=== PATIENT | female | born 1935 | race Caucasian/White ===

== ENCOUNTER 2017-05-20 22:29 | Observation (INO) | payer MEDICARE, OTHER ==
[~2017-05-20] VITALS: Ht 170.2 cm; Wt 49.9 kg
[~2017-05-20 22:29] MED LIST: ADVAIR 250-501 EACH INH; AMLODIPINE BESYL5 MG PO; ASPIRIN EC325 MG PO; BYSTOLIC10 MG PO; DOXAZOSIN MESYLA1 MG PO; HYDROCODON-ACE1 EA13 PO; LISINOPRIL40 MG PO; MULTI-DAY VITA1 EACH PO; NITROSTAT0.4 MG SL; PRAVACHOL80 MG PO; SPIRIVA18 MCG INH; VOL-CARE RX TA1 EACH PO
[2017-05-21] MEDS ORDERED: DOXAZOSIN MESYLA4 MG PO (12:52)
[2017-05-21] MEDS ORDERED: ATENOLOL25 MG PO (12:55)
[2017-05-21] MEDS ORDERED: PROMETHAZINE HC25 M1 PO (15:32)
[2017-05-21] MEDS ORDERED: TRAMADOL HCL50 MG PO (15:37)
[2017-05-21] MEDS ORDERED: ONDANSETRON ODT4 MG SL (15:38)
[2017-05-21] MEDS ORDERED: OMEPRAZOLE20 M1 PO (15:39)
[2017-05-21] MEDS ORDERED: SUCRALFATE1 GM/10 ML PO (15:41)
--- NOTE | 2017-05-21 17:22 | EKG ---
[facility] [address] [place] [address] Signed Normal sinus rhythm Left axis deviation Left bundle branch block Abnormal ECG No previous ECGs available Confirmed by KAMILA GUTIÉRREZ MD ([id number]) on 05/21/2017 5:22:35 PM Electronically Signed By: KAMILA GUTIÉRREZ MD 05/21/17 1722 PATIENT NAME: ISACC URBANO Electrocardiogram DATE OF : 37 PHYSICIAN: KAMILA GUTIÉRREZ MD REPORT #: [id number] REPORT IS CONFIDENTIAL AND NOT TO BE RELEASED WITHOUT AUTHORIZATION
== END 2017-05-21 16:20 | disposition home or self-care (01) ==
LOC: ED 22:29 → MS 22:31
PROVIDERS: ADMIT Internal Medicine
DX: K29.00 Acute gastritis without bleeding (principal); K29.50 Unspecified chronic gastritis without bleeding; T39.315A Adverse effect of propionic acid derivatives, initial encounter; E86.0 Dehydration; N39.0 Urinary tract infection, site not specified; E87.6 Hypokalemia; N63 Unspecified lump in breast; I11.0 Hypertensive heart disease with heart failure; I50.22 Chronic systolic (congestive) heart failure; J44.9 Chronic obstructive pulmonary disease, unspecified; J96.11 Chronic respiratory failure with hypoxia; E78.5 Hyperlipidemia, unspecified; F17.200 Nicotine dependence, unspecified, uncomplicated; K52.9 Noninfective gastroenteritis and colitis, unspecified; Z88.5 Allergy status to narcotic agent; Z95.2 Presence of prosthetic heart valve; Z99.81 Dependence on supplemental oxygen; Z95.810 Presence of automatic (implantable) cardiac defibrillator; Z79.82 Long term (current) use of aspirin; Z79.1 Long term (current) use of non-steroidal anti-inflammatories (NSAID); Z79.51 Long term (current) use of inhaled steroids; Z79.899 Other long term (current) drug therapy
CPT/HCPCS: 51701; 71010; 80053; 81001; 83690; 84484; 85025; 87077; 87088; 87186; 93005; 93010; 96361; 96374; 96375; 96376; 99285; 99406; G0378; J0696; J1170; J1885; J2405; J2550; J7040